=== PATIENT | female | born 1995 | race African-American/Black ===

== ENCOUNTER 2016-12-27 04:34 | Emergency (ER) | payer OTHER ==
[~2016-12-27] VITALS: Ht 160 cm; Wt 56.7 kg
[2016-12-27] MEDS ORDERED: NAPROSYN500 MG PO (05:45)
[2016-12-27 06:15] VITALS: BP 118/69
== END 2016-12-27 06:15 | disposition home or self-care (01) ==
LOC: ER 04:34
DX: S16.1XXA Strain of muscle, fascia and tendon at neck level, initial encounter (principal); S09.90XA Unspecified injury of head, initial encounter; V49.40XA Driver injured in collision with unspecified motor vehicles in traffic accident, initial encounter; Y93.I9 Activity, other involving external motion; Y92.488 Other paved roadways as the place of occurrence of the external cause; Y99.8 Other external cause status